=== PATIENT | male | born 1950 | race Caucasian/White ===

== ENCOUNTER 2018-10-14 06:07 | Day surgery (SDC) | payer MEDICARE, BC ==
[2018-10-14] MEDS ORDERED: PHENYLephrine (100 MCG/ML) 10ML SYG (07:00)
[2018-10-14] MEDS ORDERED: LIDOCAINE 4% (MPF) 5 ML INJ (07:37)
[2018-10-14] MEDS ORDERED: FENTAnyl 50 MCG/ML VIAL ×2 (07:42→09:08)
[2018-10-14] MEDS ORDERED: PROPOFOL 20 ML (07:42)
[2018-10-14] MEDS ORDERED: MIDAZOLAM 1 MG/ML 2 ML INJ (07:42)
[2018-10-14] MEDS ORDERED: ROCURONIUM 50 MG INJ (07:42)
[2018-10-14] MEDS ORDERED: SUCCINYLCHOLINE CHLORIDE 100 MG/5 ML SYG IV (07:42)
[2018-10-14] MEDS ORDERED: CEFAZOLIN 1 GM INJ (07:42)
[2018-10-14] MEDS ORDERED: LIDOCAINE 2% (SDV) 5 ML INJ (07:42)
[2018-10-14] MEDS ORDERED: BUPIVACAINE 0.25%/EPI (SDV) 30 ML INJ (07:50)
[2018-10-14] MEDS ORDERED: THROMBIN (BOVINE) 5,000 UNIT VIAL TP (07:50)
[2018-10-14] MEDS ORDERED: DEXAMETHASONE 4 MG/ML 5 ML INJ (08:42)
[2018-10-14] MEDS ORDERED: FAMOTIDINE 20 MG INJ (08:42)
[2018-10-14] MEDS ORDERED: ONDANSETRON 4 MG INJ (08:42)
[2018-10-14] MEDS ORDERED: MAGNESIUM SULFATE 1 GM/D5W 100 ML (08:42)
[2018-10-14] MEDS ORDERED: METOCLOPRAMIDE 10 MG INJ (08:42)
[2018-10-14] MEDS ORDERED: CA CHLORIDE 10% 10 ML SYRINGE (08:47)
[2018-10-14] MEDS: BUPIVACAINE 0.5%/EPI (SDV) 30 ML INJ (08:55)
[2018-10-14] MEDS: GELATIN SIZE 100 SPONGE (08:56)
[2018-10-14] MEDS: THROMBIN (BOVINE) 5,000 UNIT VIAL TP (08:56)
[2018-10-14] MEDS: SURGIFOAM POWDER 1 GM KIT (08:56)
[2018-10-14] MEDS: POLYMYXIN/BACITRACIN 1L IRRIG (08:56)
[2018-10-14] MEDS ORDERED: SUGAMMADEX SODIUM 200 MG/2 ML VIAL IV (09:09)
[2018-10-14] MEDS ORDERED: HYDROmorphONE 1 MG/5 ML IV SYRINGE IV (10:00)
[2018-10-14] MEDS ORDERED: ALBUTEROL 0.083% (NEB) 2.5 MG/3 ML AMP HHN (10:00)
[2018-10-14] MEDS ORDERED: OXYCODONE/ACETAMINOPHEN (5/325) TAB PO ×2 (10:00)
[2018-10-14] MEDS ORDERED: hydrALAzine 20 MG INJ IV (10:00)
[2018-10-14] MEDS ORDERED: MIDAZOLAM 1 MG/ML 2 ML INJ IV (10:00)
[2018-10-14] MEDS ORDERED: NALOXONE (0.4 MG/ML) INJ IV (10:30)
[2018-10-14] MEDS ORDERED: ONDANSETRON 4 MG INJ IV (10:30)
[2018-10-14] MEDS ORDERED: NACL 0.9% 3 ML SYG IV (10:30)
[2018-10-14] MEDS ORDERED: AL HYDROX/MG HYDROX/SIMETH 30 ML CUP PO (10:30)
[2018-10-14] MEDS ORDERED: PROCHLORPERAZINE 10 MG TAB PO (10:30)
[2018-10-14] MEDS: BETAMET NA PHOS/AC(6 MG/ML) 5ML INJ (10:31)
[2018-10-14] MEDS ORDERED: LORAZEPAM 2 MG INJ IV (11:00)
[2018-10-14] MEDS: HYDROmorphONE 1 MG/5 ML IV SYRINGE IV ×3 (11:23→11:38)
[2018-10-14] MEDS: LABETALOL HCL 20MG INJ IV (11:28)
[2018-10-14] MEDS: MEPERIDINE 25 MG INJ IV (11:38)
[2018-10-14] MEDS: HYDROmorphONE 0.5 MG/0.5 ML SYG IV (12:46)
[2018-10-14] MEDS: ONDANSETRON 4 MG INJ IV (13:31)
[2018-10-14] MEDS: CEFAZOLIN 1 GM/50 ML (PMX) 50 ML IVPB ×2 (13:31→21:25)
[2018-10-14] MEDS: ACETAMINOPHEN 325 MG TAB PO (16:46)
[2018-10-14] MEDS: OXYCODONE/ACETAMINOPHEN (10/325) TAB PO ×2 (18:04→23:21)
[2018-10-14] MEDS ORDERED: traZODone 100 MG TAB PO (21:00)
[2018-10-14] MEDS: ACETAMINOPHEN 1000MG/100ML IV 100 ML IVPB (21:26)
[2018-10-14] MEDS: traZODone 50 MG TAB PO (21:27)
[2018-10-15] MEDS: traZODone 50 MG TAB PO (02:29)
[2018-10-15] MEDS: CEFAZOLIN 1 GM/50 ML (PMX) 50 ML IVPB ×2 (02:30→08:47)
[2018-10-15 05:22] LABS: HEMATOCRIT 33.5 % (42.0-52.0); HEMOGLOBIN 11.1 g/dl (14.0-18.0)
[2018-10-15 05:47] LABS: ANION GAP 8 (5-13); BLOOD UREA NITROGEN 15 mg/dl (7-20); CALCIUM 9.6 mg/dl (8.4-10.2); CARBON DIOXIDE 25 mmol/L (21-31); CHLORIDE 107 mmol/L (97-110); CREATININE 0.88 mg/dl (0.61-1.24); Estimated GFR > 60 mL/min (>60); GLUCOSE 191 mg/dl (70-220); POTASSIUM 4.6 mmol/L (3.5-5.1); SODIUM 140 mmol/L (135-144)
[2018-10-15] MEDS: OXYCODONE/ACETAMINOPHEN (10/325) TAB PO (07:53)
[2018-10-15] MEDS: AMLODIPINE 5 MG TAB PO (08:47)
[2018-10-15] MEDS: ACETAMINOPHEN 1000MG/100ML IV 100 ML IVPB (08:47)
[2018-10-15] MEDS: BENAZEPRIL 10 MG TAB PO (08:50)
[2018-10-15] MEDS: DOCUSATE SODIUM 100 MG CAP PO (08:50)
== END 2018-10-15 11:15 | disposition home or self-care (01) ==
LOC: SDS 06:07 → REC 10:55 → MS1 11:34 → REC 11:34 → SDS 10:32 → MS1 11:05
DX: M48.061 Spinal stenosis, lumbar region without neurogenic claudication (principal); M51.16 Intervertebral disc disorders with radiculopathy, lumbar region; I10 Essential (primary) hypertension; E78.5 Hyperlipidemia, unspecified
CPT/HCPCS: 63030; 72100; 80048; 85014; 85018; 86850; 86900; 86901; 88304; 97116; 97161; 97530